=== PATIENT | female | born 1965 | race Caucasian/White ===

== ENCOUNTER → 2020-08-24 | Outpatient (CLI) | payer OTHER ==
--- NOTE | 2020-08-24 14:44 | NM ---
EXAM DESCRIPTION: Gastric Emptying Study CLINICAL HISTORY: 54 years Female, abdominal pain COMPARISON: CT abdomen and pelvis dated May 26, 2020 TECHNIQUE: Following an overnight fast, the patient consumed a meal containing 2 scrambled eggs, 1 slice of toast, and 100 mL of water. The scrambled eggs were labeled with 1 mCi of Tc99m sulfur colloid. Imaging was acquired over the abdomen at various time intervals following consumption of the meal, and gastric emptying was calculated. FINDINGS: Tc99m sulfur colloid activity from the meal is seen in the stomach, and demonstrates progressive excretion into the small bowel. Gastric retention at: 0 hour: 100% 1 hour: 80% 2 hours: 60.5% 4 hours: 19.3% (80.7% gastric emptying) IMPRESSION: 1. [id number] delayed gastric emptying with approximately 19.3% gastric retention by 4 hrs. Reference: Am J Gastroenterol 2008;103:753-763. Grading for severity of delayed gastric emptying based on 4-hour value in groups related to the standard deviation of the normal results: Grade 1 (mild): 11-20% retention at 4 hrs. Grade 2 (moderate): 21-35% retention at 4 hrs. Grade 3 (severe): 36-50% retention at 4 hrs. Grade 4 (very severe): >50% retention at 4 hrs. Electronically signed by: Lalo King MD 08/24/2020 2:42 PM [facility]
== END ==
LOC: NM 08:16
PROVIDERS: ATTEND Internal Medicine Gastroenterology
DX: K83.8 Other specified diseases of biliary tract (principal); N28.1 Cyst of kidney, acquired; R10.9 Unspecified abdominal pain
CPT/HCPCS: 78264; A9541